=== PATIENT | male | born 1990 | race Caucasian/White ===

== ENCOUNTER 2019-01-07 01:40 | Emergency (ER) | payer SELFPAY ==
[~2019-01-07] VITALS: Ht 182.9 cm; Wt 97.7 kg
[2019-01-07 01:45] VITALS: BP 138/91
[2019-01-07] MEDS ORDERED: TETanus/Pertussis (Acell)/Diphther VAC/PF (Tdap-Adult) 0.5ml syringe IM ONE (02:05)
[2019-01-07] MEDS ORDERED: tetanus & diphtheria toxoid (Td) vaccine 0.5ml IMVAC ONE (02:05)
== END 2019-01-07 02:30 ==
LOC: ER 01:40
DX: S00.81XA Abrasion of other part of head, initial encounter (principal); S90.414A Abrasion, right lesser toe(s), initial encounter; F10.129 Alcohol abuse with intoxication, unspecified; V49.88XA Car occupant (driver) (passenger) injured in other specified transport accidents, initial encounter; Y93.89 Activity, other specified; Y92.413 State road as the place of occurrence of the external cause; Y99.9 Unspecified external cause status; Y90.9 Presence of alcohol in blood, level not specified
CPT/HCPCS: 90471; 99283